=== PATIENT | male | born 2000 | race Hispanic/Latino ===

== ENCOUNTER 2021-11-08 15:54 | Inpatient (IN) | payer SELFPAY ==
[~2021-11-08] VITALS: Ht 177.8 cm; Wt 83.7 kg
[2021-11-08 16:54] LABS: BASOPHILS % (AUTO) 0.5 % (0.0-5.0); EOSINOPHILS % (AUTO) 0.5 % (0.0-8.0); LYMPHOCYTES % (AUTO) 28.9 % (21.0-51.0); MEAN CORPUSCULAR HEMOGLOBIN 30.6 pg (27.0-33.0); MEAN CORPUSCULAR HGB CONC 34.3 g/dL (32.0-36.0); MEAN CORPUSCULAR VOLUME 89.2 fL (80-100); MONOCYTES % (AUTO) 8.9 % (3.0-13.0); NEUTROPHILS % (AUTO) 60.9 % (40.0-77.0); PLATELET COUNT (AUTO) 284 K/uL (130-400); RED BLOOD CELL COUNT(AUTO) 5.27 MIL/uL (4.50-6.20); RED CELL DISTRIBUTION WIDTH 12.3 % (11.0-15.5); WHITE BLOOD COUNT (AUTO) 5.8 K/uL (4.8-10.8)
[2021-11-08] MEDS ORDERED: 0.9%NACL 1000ML 1,000 ML IV ONE (17:00)
[2021-11-08 17:16] LABS: CREATININE 0.9 mg/dL (0.5-1.5); POTASSIUM 3.8 mmol/L (3.5-5.1)
[2021-11-08 17:39] LABS: ALBUMIN 4.4 g/dL (3.5-5.0); BILIRUBIN,TOTAL 0.5 mg/dL (0.2-1.0); TOTAL PROTEIN, SERUM 7.9 g/dL (6.0-8.3)
[2021-11-08 17:42] LABS: APPEARANCE,URINE Clear (CLEAR); BILIRUBIN,URINE Negative (NEGATIVE); COLOR,URINE Yellow (YELLOW); GLUCOSE, URINE (UA) Negative (NEGATIVE); KETONES,URINE Negative (NEGATIVE); LEUKOCYTE ESTERASE ,URINE Trace (NEGATIVE); NITRATE,URINE Negative (NEGATIVE); OCCULT BLOOD,URINE Negative (NEGATIVE); PH,URINE 7.5 (5.0-8.0); PROTEIN,URINE Negative (NEGATIVE); UROBILINOGEN,URINE 0.2 mg/dL (0.2-1.0)
[2021-11-08 17:50] LABS: AMPHET/METH SCREEN,URINE NEGATIVE (NEGATIVE); BARBITURATE SCREEN, URINE NEGATIVE (NEGATIVE); BENZODIAZEPINES SCREEN,URINE NEGATIVE (NEGATIVE); CANNABINOID SCREEN,URINE POSITIVE (NEGATIVE); COCAINE SCREEN,URINE NEGATIVE (NEGATIVE); OPIATE SCREEN,URINE NEGATIVE (NEGATIVE); PHENCYCLIDINE SCREEN,URINE NEGATIVE (NEGATIVE)
[2021-11-08 19:16] LABS: BACTERIA,URINE None Seen /HPF (None Seen); RBC,URINE None Seen /HPF (0-1); WBC,URINE 0-1 /HPF (0-1)
[2021-11-08 19:17] LABS: SQUAMOUS EPITHELIAL CELL,UR 0-2 /HPF (0-2)
[2021-11-08] MEDS ORDERED: NICOTINE 21 MG/ 24 HR PATCH TD SCH (20:00)
[2021-11-08] MEDS ORDERED: TRAZODONE HCL 50 MG TAB PO PRN (20:00)
[2021-11-08] MEDS ORDERED: ONDANSETRON 4MG INJ IV PRN (20:00)
[2021-11-08] MEDS: LACTATED RINGERS 1000ML 1,000 ML IV SCH (21:16)
[2021-11-08] MEDS: FAMOTIDINE 20MG TAB PO SCH (21:18)
[2021-11-09] MEDS: LACTATED RINGERS 1000ML 1,000 ML IV SCH ×3 (04:30→16:44)
[2021-11-09 04:44] LABS: BASOPHILS % (AUTO) 0.7 % (0.0-5.0); EOSINOPHILS % (AUTO) 0.8 % (0.0-8.0); HEMATOCRIT 40.7 % (42-54); LYMPHOCYTES % (AUTO) 46.7 % (21.0-51.0); MEAN CORPUSCULAR HEMOGLOBIN 30.3 pg (27.0-33.0); MEAN CORPUSCULAR HGB CONC 34.2 g/dL (32.0-36.0); MEAN CORPUSCULAR VOLUME 88.9 fL (80-100); MONOCYTES % (AUTO) 8.6 % (3.0-13.0); PLATELET COUNT (AUTO) 218 K/uL (130-400); RED BLOOD CELL COUNT(AUTO) 4.58 MIL/uL (4.50-6.20); RED CELL DISTRIBUTION WIDTH 12.1 % (11.0-15.5); WHITE BLOOD COUNT (AUTO) 6.2 K/uL (4.8-10.8)
[2021-11-09 05:15] LABS: MAGNESIUM 1.5 mg/dL (1.80-2.40); PHOSPHORUS 3.3 mg/dL (2.5-4.9); POTASSIUM 3.7 mmol/L (3.5-5.1)
[2021-11-09] MEDS ORDERED: MAGNESIUM 2GM PREMIX 50ML 50 ML IV PRN ×2 (08:30)
[2021-11-09] MEDS: NICOTINE 21 MG/ 24 HR PATCH TD SCH (09:14)
[2021-11-09] MEDS: FAMOTIDINE 20MG TAB PO SCH ×2 (09:14→20:50)
[2021-11-09] MEDS ORDERED: OLAN10TA73 PO (10:03)
[2021-11-09] MEDS ORDERED: FLUO10CA21 PO (10:03)
[2021-11-09] MEDS ORDERED: TRAZ-185 PO (10:03)
[2021-11-09 21:35] VITALS: BP 140/80
[2021-11-10] VITALS: BP 120/79
[2021-11-10] MEDS: LACTATED RINGERS 1000ML 1,000 ML IV SCH ×5 (00:01→19:33)
[2021-11-10 04:00] VITALS: BP 128/72
[2021-11-10 07:30] VITALS: BP 122/83
[2021-11-10] MEDS: NICOTINE 21 MG/ 24 HR PATCH TD SCH (08:21)
[2021-11-10] MEDS: FAMOTIDINE 20MG TAB PO SCH ×2 (08:21→19:33)
[2021-11-10 08:24] LABS: HEMATOCRIT 42.1 % (42-54); MEAN CORPUSCULAR HGB CONC 33.7 g/dL (32.0-36.0); MEAN CORPUSCULAR VOLUME 88.8 fL (80-100); RED BLOOD CELL COUNT(AUTO) 4.74 MIL/uL (4.50-6.20); RED CELL DISTRIBUTION WIDTH 12.1 % (11.0-15.5); WHITE BLOOD COUNT (AUTO) 5.8 K/uL (4.8-10.8)
[2021-11-10 08:53] LABS: CREATININE 0.8 mg/dL (0.5-1.5); POTASSIUM 3.6 mmol/L (3.5-5.1)
[2021-11-10 11:25] VITALS: BP 129/69
[2021-11-10] MEDS ORDERED: TRAZODONE HCL 50 MG TAB PO PRN (14:30)
[2021-11-10] MEDS ORDERED: HYDROXYZINE 25 MG TABLET PO PRN (14:30)
[2021-11-10 15:25] VITALS: BP 123/66
[2021-11-10] MEDS ORDERED: ACETAMINOPHEN 325 MG TAB PO PRN (17:00)
[2021-11-10 19:00] VITALS: BP 137/61
[2021-11-10] MEDS ORDERED: CHLORDIAZEPOXIDE HCL 25 MG CAP PO ONE (19:00)
[2021-11-11] VITALS: BP 128/85
[2021-11-11 04:00] VITALS: BP 113/67
[2021-11-11 06:46] LABS: CREATININE 0.9 mg/dL (0.5-1.5)
[2021-11-11 07:40] VITALS: BP 122/71
[2021-11-11] MEDS: FAMOTIDINE 20MG TAB PO SCH (08:44)
[2021-11-11] MEDS: NICOTINE 21 MG/ 24 HR PATCH TD SCH (08:44)
[2021-11-11 11:40] VITALS: BP 120/53
== END 2021-11-11 12:55 | disposition home or self-care (01) | DRG 558 ==
LOC: EDH 15:54 → EDHIP 15:55 → OBSVTOIN 19:33 → 3BH 11-09 20:49 → INTOOBSV 11-10 09:42 → OBSVTOIN 11-10 09:42
PROVIDERS: ADMIT Internal Medicine; ATTEND Internal Medicine
DX: M62.82 Rhabdomyolysis (principal); F19.10 Other psychoactive substance abuse, uncomplicated; F17.210 Nicotine dependence, cigarettes, uncomplicated; F14.90 Cocaine use, unspecified, uncomplicated; F12.10 Cannabis abuse, uncomplicated; F41.1 Generalized anxiety disorder; F91.9 Conduct disorder, unspecified
CPT/HCPCS: 36415; 80048; 80053; 80305; 81001; 82550; 83735; 84100; 84484; 85025; 85027; 87088; 93005; G0378; J3475; J7120